=== PATIENT | male | born 1995 | race Caucasian/White ===

== ENCOUNTER 2018-03-18 09:07 | Emergency (ER) | payer OTHER ==
[2018-03-18] MEDS: DERMABOND TOPICAL SKIN ADHESIVE TOP (09:30)
[2018-03-18] MEDS: ADACEL/BOOSTRIX VACCINE (DIPHTH/PERTUSS/ACELL/TETANUS)0.5ML SYR (90715) IM (09:48)
== END 2018-03-18 10:00 | disposition home or self-care (01) ==
LOC: M ED 09:07
DX: S61.012A Laceration without foreign body of left thumb without damage to nail, initial encounter (principal); W26.8XXA Contact with other sharp object(s), not elsewhere classified, initial encounter; Y92.59 Other trade areas as the place of occurrence of the external cause; Y99.0 Civilian activity done for income or pay
CPT/HCPCS: 90715

== ENCOUNTER 2018-03-19 19:16 | Emergency (ER) | payer OTHER ==
[2018-03-19] MEDS: DERMABOND TOPICAL SKIN ADHESIVE TOP (22:25)
== END 2018-03-19 22:41 | disposition home or self-care (01) ==
LOC: M ED 19:16
DX: S61.012A Laceration without foreign body of left thumb without damage to nail, initial encounter (principal); W26.0XXA Contact with knife, initial encounter; Y92.89 Other specified places as the place of occurrence of the external cause
CPT/HCPCS: 12002